=== PATIENT | female | born 1975 | race Two or more races ===

== ENCOUNTER 2016-05-21 23:59 | Emergency (ER) | payer OTHER ==
--- NOTE | ~2016-05-21 | CT2 ---
[facility] A Service of [facility] [place] RADIOLOGY TEXT RESULTS PATIENT: BENJAMIN GIRON LOCATION: CB : 71 UNIT #: [id number] AGE: [address]: Giacomo Curtis MD SEX: F ORDER DR: [id number] [facility]. [place], [place] [address] [id number] E MR#: [id number] Acc #: [id number] NAME: BENJAMIN GIRON : 1975 SEX: F STUDY DATE/TIME: 05/22/2016 3:57 UNIT: CB ROOM: STUDY DESCRIPTION: CT Abd and Pelv W Cont Attending Physician: Giacomo Curtis Ordering Physician: Bernard Curtis M.D. Primary Care Physician: Primary Care Physician No MEDICAL IMAGING REPORT This report is preliminary unless electronic signature is present EXAM CT abdomen and pelvis with contrast DATE: 05/22/2016 HISTORY Abdominal pain for 4 days, greatest in the epigastric region, worse since yesterday. Diarrhea. COMPARISON None. PROCEDURE 5 mm axial images from lung bases to lesser trochanters after intravenous and enteric contrast administration. Sagittal and coronal reformed images were obtained. The CT exam was performed with one or more of the following radiation dose reduction techniques: automatic exposure control, adjustment of mA and/or kV according to patient size, and iterative reconstruction. Abdomen findings: Lung bases are free of consolidation. The liver, gallbladder, spleen, pancreas, adrenals and left kidney are normal. There is focal cortical scarring in the right mid kidney. Normal appendix. Segmental small bowel thickening in the right mid abdomen, thought to represent distal ileum, suggesting changes of focal enteritis. No evidence of high-grade bowel obstruction (see series 2 image 41 and series 62 image 25 denoted by arrows). Pelvis findings: Findings consistent with multiple uterine leiomyomas. Urinary bladder and rectum are normal. No pelvic adenopathy or free fluid. IMPRESSION [facility] A Service of [facility] [place] RADIOLOGY TEXT RESULTS PATIENT: BENJAMIN GIRON LOCATION: CB : 73 UNIT #: [id number] AGE: [address]: Giacomo Curtis MD SEX: F ORDER DR: 1. Segmentally thickened small bowel loop in the right mid abdomen thought to represent the distal ileum. Findings are favored to represent changes of focal infectious or inflammatory enteritis. No evidence of high-grade large or small bowel obstruction. Appendix is normal. 2. Enlarged uterus with suspected multiple uterine fibroids. This can be correlate to pelvic ultrasound on a non emergent basis if deemed clinically appropriate. 3. Focal right renal cortical scarring. Dictated by... Mimi Kilgore M.D. THIS IS AN ELECTRONICALLY VERIFIED REPORT Mimi Kilgore M.D. at 05/23/2016 1:50 AM CHRIS/aaron TD: 05/22/2016 11:35 JOB #: [id number] MEDICAL IMAGING REPORT COPY
[2016-05-22 01:41] LABS: BASOPHIL# 0.1 X10e3 (0-0.3); BASOPHIL% 0.8 % (0-2.5); EOSINOPHIL# 0.2 X10e3 (0-0.7); EOSINOPHIL% 2.3 % (0.0-7.0); HEMATOCRIT 42.6 % (35.0-45.0); HEMOGLOBIN 13.6 gm/dL (12.0-16.0); LYMPHOCYTE# 1.2 X10e3 (1.0-3.5); LYMPHOCYTE% 16.7 % (17.0-45.0); MEAN CELL VOLUME 90.4 FL (83-96); MEAN CORPUSCULAR HEMOGLOBIN 28.8 PG (28-34); MEAN CORPUSCULAR HGB CONC 31.8 g/dL (30-36); MEAN PLATELET VOLUME 8.6 FL (6.5-11.5); MONOCYTE# 0.6 X10e3 (0-1.0); NEUTROPHIL# 5.1 X10e3 (1.5-7.1); NEUTROPHIL% 71.2 % (40-75); PLATELET COUNT 274 X10e3 (140-420); RED BLOOD COUNT 4.71 X10e (3.90-5.30); RED CELL DISTRIBUTION WIDTH 14.2 % (11.0-15.5); WHITE BLOOD COUNT 7.2 X10e3 (4.0-10.5)
[2016-05-22 01:42] LABS: DIFF IND NO
[2016-05-22 02:17] LABS: ALBUMIN SERUM 4.2 g/dL (3.5-5.0); ALKALINE PHOSPHATASE 86 U/L (32-92); ALT (SGPT) 185 U/L (10-40); AMYLASE 27 U/L (0-46); AST (SGOT) 405 U/L (10-42); BILIRUBIN, DIRECT 0.1 mg/dL (0.0-0.2); BILIRUBIN,INDIRECT 0.5 mg/dL (0.0-0.9); BILIRUBIN,TOTAL 0.6 mg/dL (0.2-2.0); BLOOD UREA NITROGEN 15 mg/dL (9-23); BUN/CREATININE RATIO 21.42; CALCIUM SERUM 9.2 mg/dL (8.4-10.2); CARBON DIOXIDE 24 mmol/L (22-31); CHLORIDE 107 mmol/L (100-111); CREATININE SERUM 0.7 mg/dL (0.6-1.4); GLOM FILT RATE Estimated ABOVE60 mL/min (>60); GLUCOSE FASTING 123 mg/dL (70-110); LIPASE 34 U/L (22-51); POTASSIUM 3.3 mmol/L (3.5-5.1); PROTEIN TOTAL SERUM 7.5 g/dL (6.0-8.3); SODIUM 139 mmol/L (135-145)
[2016-05-22 04:53] LABS: URINE SOURCE CLEAN CATCH
[2016-05-22 04:55] LABS: URINE APPEARANCE TURBID; URINE BILIRUBIN NEG (NEG); URINE BLOOD NEG (NEG); URINE COLOR YELLOW; URINE GLUCOSE NEG (NEG); URINE KETONE NEG (NEG); URINE LEUKOCYTE ESTERASE NEG (NEG); URINE NITRATE NEG (NEG); URINE PH 8.5 (5-8); URINE PROTEIN NEG (NEG); URINE SPECIFIC GRAVITY 1.015 (1.003-1.035)
[2016-05-22 05:00] LABS: CULTURE INDICATED? NO
== END 2016-05-22 05:48 | disposition home or self-care (01) ==
LOC: CED 23:59
PROVIDERS: Emergency Medicine
DX: K52.9 Noninfective gastroenteritis and colitis, unspecified (principal); R79.89 Other specified abnormal findings of blood chemistry; F17.210 Nicotine dependence, cigarettes, uncomplicated
CPT/HCPCS: 36415; 74177; 80048; 80076; 81003; 82150; 83690; 85025; 99284; Q9967

== ENCOUNTER 2016-09-19 11:29 | Emergency (ER) | payer OTHER | END 2016-09-19 12:40 | disposition home or self-care (01) | LOC: CFTX 11:29 → CED 11:29 → CFTX 12:20 | DX: H10.33 Unspecified acute conjunctivitis, bilateral (principal); F17.200 Nicotine dependence, unspecified, uncomplicated | CPT/HCPCS: 99283 ==

== ENCOUNTER 2016-09-25 00:31 | Emergency (ER) | payer OTHER ==
--- NOTE | ~2016-09-25 | CT99 ---
[facility]. [facility] A Service of [facility] RADIOLOGY TEXT RESULTS PATIENT: BENJAMIN GIRON LOCATION: [facility] : [birth year] UNIT #: [id number] AGE: [address]: Homar Danielle DO SEX: F ORDER DR: [id number] [facility] [address] [place], [place] [address] [id number] E MR#: [id number] Acc #: [id number] NAME: BENJAMIN GIRON : 1975 SEX: F STUDY DATE/TIME: 09/25/2016 5:50 UNIT: [facility] ROOM: STUDY DESCRIPTION: CT Maxillofacial Area W Cont Attending Physician: Homar Danielle D.O. Ordering Physician: Homar Danielle D.O. Primary Care Physician: Primary Care Physician No MEDICAL IMAGING REPORT This report is preliminary unless electronic signature is present EXAM CT face 09/26 INDICATIONS Bilateral eye redness with burning and drainage for the last 4 days. TECHNIQUE Axial images were obtained through the face following IV contrast administration. Multiplanar reformats were obtained. No comparison. The CT exam was performed with one or more of the following radiation dose reduction techniques: automatic exposure control, adjustment of mA and/or kV according to patient size, and iterative reconstruction. FINDINGS The bones are normal. No fractures are seen. Paranasal sinuses are clear. There is prominent enhancement conjunctiva on both sides compatible with conjunctivitis. There is no intraorbital fat stranding or fluid. Mild degree of periorbital cellulitis may be present as well on both sides. There is a prominent left submandibular lymph node measuring 1.3 x 1.0 cm. This is presumably reactive. IMPRESSION 1. The bones are normal and the paranasal sinuses are clear. 2. Enhancement of the conjunctiva bilaterally compatible with conjunctivitis. There is also probably a mild degree of periorbital cellulitis bilaterally. No abscess is seen. The intraorbital fat is clean. The globes are unremarkable. 3. Probable reactive lymph nodes on both sides of the neck with the largest being a left submandibular node. [facility] A Service of [facility] RADIOLOGY TEXT RESULTS PATIENT: BENJAMIN GIRON LOCATION: [facility] : [birth year] UNIT #: [id number] AGE: [address]: Homar Danielle DO SEX: F ORDER DR: Dictated by... Lauri White Jr., M.D. THIS IS AN ELECTRONICALLY VERIFIED REPORT Lauri White Jr., M.D. at 09/25/2016 3:49 PM MYRA/aaron TD: 09/25/2016 13:53 JOB #: [id number] MEDICAL IMAGING REPORT Page 1 of 1 COPY
[2016-09-25 05:22] LABS: BASOPHIL% 0.4 % (0-2.5); EOSINOPHIL% 0.5 % (0.0-7.0); HEMOGLOBIN 13.8 gm/dL (12.0-16.0); LYMPHOCYTE# 1.8 X10e3 (1.0-3.5); MEAN CELL VOLUME 91.7 FL (83-96); MEAN CORPUSCULAR HEMOGLOBIN 29.4 PG (28-34); MEAN CORPUSCULAR HGB CONC 32.1 g/dL (30-36); MEAN PLATELET VOLUME 8.5 FL (6.5-11.5); MONOCYTE# 0.5 X10e3 (0-1.0); MONOCYTE% 9.8 % (3.0-12.0); NEUTROPHIL# 2.5 X10e3 (1.5-7.1); NEUTROPHIL% 52.3 % (40-75); PLATELET COUNT 276 X10e3 (140-420); RED BLOOD COUNT 4.69 X10e (3.90-5.30); RED CELL DISTRIBUTION WIDTH 14.2 % (11.0-15.5); WHITE BLOOD COUNT 4.8 X10e3 (4.0-10.5)
[2016-09-25 05:36] LABS: DIFF IND NO
[2016-09-25 05:37] LABS: CALCIUM SERUM 8.8 mg/dL (8.4-10.2); POTASSIUM 3.5 mmol/L (3.5-5.1)
== END 2016-09-25 07:28 | disposition home or self-care (01) ==
LOC: CED 00:31
PROVIDERS: Emergency Medicine
DX: H10.023 Other mucopurulent conjunctivitis, bilateral (principal)
CPT/HCPCS: 36415; 70487; 80048; 84703; 85025; 99284; Q9967

== ENCOUNTER 2016-09-30 12:27 | Emergency (ER) | payer OTHER | END 2016-09-30 13:29 | disposition home or self-care (01) | LOC: CED 12:27 | DX: H10.33 Unspecified acute conjunctivitis, bilateral (principal) | CPT/HCPCS: 96372; 99283; J1100 ==